=== PATIENT | male | born 1990 | race Caucasian/White ===

== ENCOUNTER 2019-10-07 15:22 | Emergency (ER) | payer SELFPAY ==
[~2019-10-07] VITALS: Ht 180.3 cm; Wt 86.2 kg
[2019-10-07 15:23] VITALS: BP 131/72
--- NOTE | 2019-10-07 15:30 | NUR ---
[address] PATROL FOT TC -LOC, -AIRBAGS, +SEATBELT PT HAS NO COMPLAINTS AT THIS TIME
[2019-10-07 16:10] VITALS: BP 122/68
--- NOTE | 2019-10-07 16:10 | NUR ---
Patient discharged with v/s stable. Written and verbal after care instructions given and explained. Patient alert, oriented and verbalized understanding of instructions. Police with in custody. All questions addressed prior to discharge. ID band removed. Patient advised to follow up with PMD.NO Rx given. Patient educated on indication of medication including possible reaction and side effects. Opportunity to ask questions provided and answered.
== END 2019-10-07 16:10 ==
LOC: MED 15:22
DX: R03.0 Elevated blood-pressure reading, without diagnosis of hypertension (principal); Z04.1 Encounter for examination and observation following transport accident; Z02.89 Encounter for other administrative examinations; V43.52XA Car driver injured in collision with other type car in traffic accident, initial encounter; Y93.89 Activity, other specified; Y92.89 Other specified places as the place of occurrence of the external cause; Y99.8 Other external cause status
CPT/HCPCS: 99283